=== PATIENT | female | born 1980 | race Caucasian/White ===

== ENCOUNTER → 2017-05-11 | Outpatient (CLI) | payer OTHER ==
--- NOTE | 2017-05-11 14:18 | RAD ---
DATE: 05/11/2017 EXAM: MAMMO KAILA CLARI POWER, BREAST RIGHT HISTORY: Palpable lump in the right breast. COMPARISON: 04/11/2016 This study was interpreted with the benefit of Computerized Aided Detection (CAD). The breast parenchyma is heterogeneously dense, which could reduce sensitivity of mammography. Breast parenchyma level C. FINDINGS: Digital MLO and CC mammograms of both breasts were obtained. Additionally digital breast tomosynthesis images (3-D mammography) of both breasts was performed in the MLO and CC projections. A radiopaque marker was placed in the right breast in the area where the patient feels a palpable abnormality. Comparison study is dated 04/11/2016. The breast parenchyma is heterogeneously dense which can obscure a lesion on mammography (breast density code C). Benign-appearing calcifications are seen within both breasts. No spiculated mass is seen. No malignant appearing calcification is noted. Digital breast tomosynthesis images demonstrate no spiculated mass. No malignant appearing calcification is seen. The patient's palpable abnormality does not have a definite mammographic correlate. A real-time ultrasound examination of the right breast in this area (9:00 position) was performed. Within the 9:00 position of the right breast a well-defined oval-shaped anechoic structure is seen which measures 4 mm in greatest diameter. It is consistent with a simple cyst. It corresponds to the patient's palpable abnormality. No solid mass is seen. IMPRESSION: The Patient's palpable abnormality represents a 4 mm simple cyst at the 9:00 position within the right breast. BI-RADS Category 2 benign findings. There is no mammographic evidence of malignancy. BI-RADS CATEGORY: 2 BENIGN FINDING(S) RECOMMENDED FOLLOW-UP: 12M 12 MONTH FOLLOW-UP PQRS compliance statement: Patient information was entered into a reminder system with a target due date 05/11/2018 for the next mammogram. Mammography is a sensitive method for finding small breast cancers, but it does not detect them all and is not a substitute for careful clinical examination. A negative mammogram does not negate a clinically suspicious finding and should not result in delay in biopsying a clinically suspicious abnormality. "Our facility is accredited by the [employer] Mammography Program."
== END | disposition home or self-care (01) ==
LOC: KCIC MAMMO 12:15
PROVIDERS: ATTEND Obstetrics & Gynecology
DX: N60.01 Solitary cyst of right breast (principal)
CPT/HCPCS: 76641; G0204; G0279; 77062; 77066